=== PATIENT | female | born 1985 | race Caucasian/White ===

== ENCOUNTER 2018-06-23 18:26 | Emergency (ER) | payer BC ==
[2018-06-23 18:46] VITALS: BP 128/88; PULSE 108; TEMP 98.4; BMI 20.9
--- NOTE | 2018-06-23 18:54 | PDOC ---
History of Present Illness <Betito Yanes - Last Filed: 06/23/18 18:46> - General History Source: Patient Exam Limitations: No Limitations - History of Present Illness Initial Comments: 06/23/18 19:16 The patient is a 32-year-old female, with a past medical history of endometriosis and anxiety, who presents to the ED for diffuse abdominal pain that began on Thursday. Patient reports 1 episode of vomiting on Thursday, nonbloody , nonbilious. She denies any diarrhea but reports that she has not been able to pass a bowel movement since then. Patient has been able to pass gas. She describes the pain as constant, crampy in sensation, 8/10 prior to arrival to ED and now a 6/10, nonradiating. Patient does not believe she is . The patient denies any fever, chills, or diarrhea. She denies any shortness of breath or chest pain. She denies any urinary symptoms. Allergies: Contrast dye. Surgical History: None reported. Social History: None reported. <Orquidea Del Angel - Last Filed: 06/23/18 19:31> - General Chief Complaint: Pain Stated Complaint: ABDOMINAL PAIN FOR 2 DAYS VOMITTED ONCE Time Seen by Provider: 06/23/18 18:36 Past History - Past Medical History COPD: No Psychiatric Problems: Yes (ANXIETY) Other medical history: ENDOMETRIOSIS - Suicide/Smoking/Psychosocial Hx Smoking History: Current every day smoker Have you smoked in the past 12 months: Yes Number of Cigarettes Smoked Daily: 20 Information on smoking cessation initiated: Yes Hx Alcohol Use: No Drug/Substance Use Hx: No <Betito Yanes - Last Filed: 06/23/18 18:46> <Orquidea Del Angel - Last Filed: 06/23/18 19:31> - Past Medical History Allergies/Adverse Reactions: Allergies Allergy/AdvReac Type Severity Reaction Status Date / Time CONTRAST DYE Allergy Severe Uncoded 06/23/18 18:30 Home Medications: Ambulatory Orders Clonazepam [Klonopin] 1 mg PO QID 06/23/18 Mirtazapine [Remeron -] 1 tab PO HS 06/23/18 Review of Systems - Review of Systems Able to Perform ROS?: Yes ABD/GI: Yes: Constipated, Nausea, Vomiting (x1), Other (Diffuse abdominal pain, worse in RUQ and RLQ) <Orquidea Del Angel - Last Filed: 06/23/18 19:31> *Physical Exam - Vital Signs Last Vital Signs Temp Pulse Resp BP Pulse Ox 98.4 F 108 H 16 128/88 99 18 18:27 18 18:27 18 18:27 18 18:27 06/23/18 18:27 <JoaquínRemus S - Last Filed: 06/23/18 18:46> - Vital Signs Last Vital Signs Temp Pulse Resp BP Pulse Ox 98.4 F 108 H 16 128/88 99 06/23/18 18:27 06/23/18 18:27 06/23/18 18:27 06/23/18 18:27 06/23/18 18:27 - Physical Exam General Appearance: Yes: Other (Alert and oriented ) Gastrointestinal/Abdominal: positive: Tender (Moderate diffuse tenderness, mainly in RUQ and RLQ) Musculoskeletal: negative: CVA Tenderness Neurologic: positive: Alert <Orquidea Del Angel - Last Filed: 06/23/18 19:31> Moderate Sedation - Procedure Monitoring Vital Signs: Procedure Monitoring Vital Signs Temperature 98.4 F 06/23/18 18:27 Pulse Rate 108 H 06/23/18 18:27 Respiratory Rate 16 06/23/18 18:27 Blood Pressure 128/88 06/23/18 18:27 O2 Sat by Pulse Oximetry (%) 99 06/23/18 18:27 <Catarina Yanesus S - Last Filed: 06/23/18 18:46> - Procedure Monitoring Vital Signs: Procedure Monitoring Vital Signs Temperature 98.4 F 06/23/18 18:27 Pulse Rate 108 H 06/23/18 18:27 Respiratory Rate 16 06/23/18 18:27 Blood Pressure 128/88 06/23/18 18:27 O2 Sat by Pulse Oximetry (%) 99 06/23/18 18:27 <Orquidea Del Angel - Last Filed: 06/23/18 19:31> ED Treatment Course - LABORATORY CBC & Chemistry Diagram: 06/23/18 18:57 06/23/18 18:57 - ADDITIONAL ORDERS Additional order review: Laboratory Results 06/23/18 12 18:57 18:57 Urine Color Yellow Urine Appearance Cloudy Urine pH 5.5 Ur Specific [place] >= 1.030 Urine Protein Trace Urine Glucose (UA) Negative Urine Ketones Trace Urine Blood Trace-lysed H Urine Nitrite Negative Urine Bilirubin Negative Urine Urobilinogen 0.2 Ur Leukocyte Esterase 3+ H Urine RBC 2-5 Urine WBC 20-40 Ur Epithelial Cells Few Urine Bacteria 2+ Urine HCG, Qual Negative 06/23/18 18:57 RBC 4.89 MCV 91.3 MCHC 32.8 RDW 12.2 MPV 10.3 Neutrophils % 61.4 Lymphocytes % 30.8 Monocytes % 6.1 Eosinophils % 0.9 Basophils % 0.8 <Orquidea Del Angel - Last Filed: 06/23/18 19:31> *DC/Admit/Observation/Transfer <Betito Yanes - Last Filed: 06/23/18 18:46> - Attestations Scribe Attestion: 06/23/18 19:29 Documentation prepared by Orquidea Del Angel, acting as mobile paramedical examiner for Jbo Ruelas MD. <Orquidea Del Angel - Last Filed: 06/23/18 19:31> - Discharge Dispostion Condition at time of disposition: Stable
[2018-06-23 19:03] LABS: PH,URINE 5.5 (4.5-8); URINE APPEARANCE Cloudy; URINE BILIRUBIN Negative (NEGATIVE); URINE COLOR Yellow; URINE GLUCOSE (UA) Negative (NEGATIVE); URINE KETONE Trace (NEGATIVE); URINE LEUK ESTERASE 3+ (NEGATIVE); URINE NITRITE Negative (NEGATIVE); URINE PROTEIN Trace (NEGATIVE); URINE UROBILINOGEN 0.2 (0.2-1.0)
[2018-06-23 19:07] LABS: BASO % 0.8 % (0-2.0); EOS % 0.9 % (0-4.5); HEMATOCRIT 44.7 % (32.4-45.2); HEMOGLOBIN 14.6 GM/dl (10.7-15.3); LYMPH % 30.8 % (8-40); MCH 29.9 pg (25.7-33.7); MCHC 32.8 g/dl (32.0-36.0); MEAN CELL VOLUME 91.3 fl (80-96); MEAN PLT VOLUME 10.3 fl (7.5-11.1); MONO % 6.1 % (3.8-10.2); NEUT % 61.4 % (42.8-82.8); PLATELET COUNT 197 K/MM3 (134-434); RBC 4.89 M/mm3 (3.60-5.2); RDW 12.2 % (11.6-15.6); WHITE BLOOD COUNT 7.6 K/mm3 (4.0-10.8)
[2018-06-23 19:09] LABS: EPI CELLS FEW /HPF; URINE BACTERIA 2+ /hpf (NEGATIVE); URINE WBC 20-40 (0-5)
[2018-06-23 19:22] LABS: ALBUMIN 3.8 g/dl (3.5-5.0); ALK PHOS 72 U/L (32-92); ANION GAP 8 MMOL/L (8-16); BILIRUBIN,TOTAL 0.3 mg/dl (0.2-1.0); BLOOD UREA NITROGEN 18 mg/dl (7-18); CALCIUM 9.1 mg/dl (8.4-10.2); CHLORIDE 108 mmol/L (98-107); CO2 23 mmol/L (22-28); CREATININE 0.7 mg/dl (0.6-1.3); GLUCOSE,RANDOM 105 mg/dl (74-106); POTASSIUM 4.1 mmol/L (3.5-5.1); SGOT/AST 17 U/L (10-42); SGPT/ALT 12 U/L (10-40); SODIUM 139 mmol/L (136-145); TOT PROT 6.8 g/dl (6.4-8.3)
--- NOTE | 2018-06-23 20:05 | PDOC ---
*Physical Exam - Vital Signs Last Vital Signs Temp Pulse Resp BP Pulse Ox 98.4 F 108 H 16 128/88 99 06/23/18 18:27 06/23/18 18:27 06/23/18 18:27 06/23/18 18:27 06/23/18 18:27 ED Treatment Course - LABORATORY CBC & Chemistry Diagram: 06/23/18 18:57 06/23/18 18:57 - ADDITIONAL ORDERS Additional order review: Laboratory Results 06/23/18 06/23/18 06/23/18 18:57 18:57 18:57 Sodium 139 Potassium 4.1 Chloride 108 H Carbon Dioxide 23 Anion Gap 8 BUN 18 Creatinine 0.7 Creat Clearance w eGFR > 60 Random Glucose 105 Calcium 9.1 Total Bilirubin 0.3 AST 17 ALT 12 Alkaline Phosphatase 72 Total Protein 6.8 Albumin 3.8 Urine Color Yellow Urine Appearance Cloudy Urine pH 5.5 Ur Specific [place] >= 1.030 Urine Protein Trace Urine Glucose (UA) Negative Urine Ketones Trace Urine Blood Trace-lysed H Urine Nitrite Negative Urine Bilirubin Negative Urine Urobilinogen 0.2 Ur Leukocyte Esterase 3+ H Urine RBC 2-5 Urine WBC 20-40 Ur Epithelial Cells Few Urine Bacteria 2+ Urine HCG, Qual Negative 06/23/18 18:57 RBC 4.89 MCV 91.3 MCHC 32.8 RDW 12.2 MPV 10.3 Neutrophils % 61.4 Lymphocytes % 30.8 Monocytes % 6.1 Eosinophils % 0.9 Basophils % 0.8 Progress Note - Progress Note Progress Note: Care of this patient was [place] [facility] [place] patient is a 32-year- old female comes in complaining of lower abdominal pelvic pain. Patient has a workup pending including ultrasound Doppler and CAT scan. Patient's lab work is also pending. 20:00 Patient has normal white count and normal CBC Patient has normal chemistries Patient's urinalysis is positive for leukocytes, bacteria and a few red blood cells consistent with a urinary tract infection. Ceftriaxone ordered for the infection and Toradol for the pain. Patient CAT scan abdomen and pelvis was negative for any acute intra-abdominal pathology. Negative for pyelonephritis Ultrasound negative for any acute pathology Patient given copies of all of her blood work and told to follow-up with her primary care doctor and her OB for the endometriosis *DC/Admit/Observation/Transfer Diagnosis at time of Disposition: Cystitis, Constipation - Discharge Dispostion Disposition: HOME Condition at time of disposition: Stable Decision to Admit order: No - Prescriptions Prescriptions: Nitrofurantoin Monohyd/M-Cryst [Macrobid -] 100 mg PO BID #14 capsule - Referrals - Patient Instructions Additional Instructions: Your workup was negative for everything except a urinary tract infection and some constipation. You given an IV antibiotic here in the emergency room but will need to take antibiotics at home starting tomorrow. I sent a prescription to your pharmacy will take the antibiotic twice a day for 7 days. I am also giving you a bottle of mag citrate which is a laxative. Drink it either tonight or tomorrow morning and that should help with your constipation. In addition to that also get an [id number] laxative and take it as needed for your constipation. Tylenol or Motrin as needed for pain. Return to the emergency department immediately with ANY new, persistent or worsening symptoms. Continue any medications as previously prescribed by your physician. You should follow up with your primary doctor as soon as possible regarding today's emergency department visit. . Please make sure your doctor reviews the results of your emergency evaluation. Thank you for coming to the Emergency Department today for your care. It was a pleasure to see you today. Please note that your evaluation is INCOMPLETE until you follow-up with your doctor. - Post Discharge Activity
[2018-06-23] MEDS ORDERED: CEFTRIAXONE 1 G/50 ML PREMIX 50 ML IVPB STA (20:06)
[2018-06-23] MEDS ORDERED: KETOROLAC TROMETHAMINE 30 MG/1 ML VIAL IVPUSH ONE (20:15)
[2018-06-23] MEDS ORDERED: KETOROLAC TROMETHAMINE 30 MG/1 ML VIAL ONE (20:26)
[2018-06-23] MEDS ORDERED: cefTRIAXone SODIUM 1 GM VIAL ONE (20:26)
[2018-06-23] MEDS ORDERED: MAGNESIUM CITRATE 300 ML BOTTLE PO ONE (21:45)
[2018-06-23] MEDS ORDERED: MAGNESIUM CITRATE 300 ML BOTTLE ONE (21:47)
== END 2018-06-23 22:56 | disposition home or self-care (01) ==
LOC: FER 18:26
PROC: 3E03329 Introduction of Other Anti-infective into Peripheral Vein, Percutaneous Approach (ICD-10-PCS; principal; 2018-06-23)
PROC: 3E0333Z Introduction of Anti-inflammatory into Peripheral Vein, Percutaneous Approach (ICD-10-PCS; 2018-06-23)
DX: N30.90 Cystitis, unspecified without hematuria (principal); K59.00 Constipation, unspecified
CPT/HCPCS: 36415; 74176-TC; 76700-TC; 80053; 81003; 81015; 84703; 85025; 87086; 99283-25